=== PATIENT | female | born 1975 | race Caucasian/White ===

== ENCOUNTER 2016-11-08 14:43 | Emergency (ER) | payer OTHER ==
[~2016-11-08] VITALS: Ht 162.6 cm; Wt 118.2 kg
[~2016-11-08 14:43] MED LIST: DROSPIRENONE; NORCO 325 MG-51 TAB; PROTONIX 40MG T40 MG PO; ZYRTEC 10MG10 MG PO; antibiotic
[2016-11-08 14:51] VITALS: BP 169/84; TEMP 98.7
[2016-11-08] MEDS ORDERED: ORTHO TRI-CYCLE1 TA2 PO (14:55)
[2016-11-08 16:45] VITALS: PULSE 89
== END 2016-11-08 16:49 | disposition home or self-care (01) ==
LOC: COL.ER 14:43
DX: M25.522 Pain in left elbow (principal); M25.552 Pain in left hip; S50.312A Abrasion of left elbow, initial encounter; W10.9XXA Fall (on) (from) unspecified stairs and steps, initial encounter; K21.9 Gastro-esophageal reflux disease without esophagitis

== ENCOUNTER → 2017-10-23 | Outpatient (REF) ==
[~2017-10-23] MED LIST changes: +ORTHO TRI-CYCLE1 TA2 PO
[2017-10-23 18:27] LABS: IRON,SERUM 23 ug/dL (35-150)
[2017-10-23 18:37] LABS: TOTAL IRON BINDING CAPACITY 406 ug/dL (265-497)
[2017-10-23 19:04] LABS: FERRITIN 5 ng/mL (6-137)
== END ==
LOC: ZLAB.WCH 18:09
PROVIDERS: Family Medicine
DX: Z01.89 Encounter for other specified special examinations (principal)

== ENCOUNTER → 2018-04-19 | Outpatient (REF) ==
[2018-04-19 18:47] LABS: THYROID STIMULATING HORMONE 1.77 uIU/mL (0.465-4.680)
== END ==
LOC: ZLAB.WCH 18:07
PROVIDERS: Family Medicine
DX: Z01.89 Encounter for other specified special examinations (principal)

== ENCOUNTER → 2018-07-24 | Outpatient (CLI) | payer BC | LOC: ZCOL.LAB 18:01 | DX: K61.1 Rectal abscess (principal) ==

== ENCOUNTER 2018-08-15 11:29 | Day surgery (SDC) | payer BC ==
[~2018-08-15] VITALS: Ht 162.6 cm; Wt 117.8 kg
[2018-08-15] MEDS ORDERED: PROBIOTIC FORMU1 CAP PO (12:01)
[2018-08-15] MEDS ORDERED: BIOCLEANSE PO (12:01)
[2018-08-15] MEDS ORDERED: OMNICEF 300MG300 MG PO (12:02)
[2018-08-15 12:03] VITALS: BP 133/79; PULSE 80; TEMP 97.4
--- NOTE | 2018-08-15 12:30 | NUR ---
Patient assisted up to the bathroom and gait is steady. IV fluids infusing.
--- NOTE | 2018-08-15 13:31 | NUR ---
Dr. Franklin here and talks with the patient. All questions answered.
[2018-08-15 15:55] VITALS: BP 123/68; PULSE 73; TEMP 97.4
--- NOTE | 2018-08-15 15:55 | NUR ---
Patient wheeled back to [facility] from PACU. Alert and oriented. Vital signs obtained, WNL. Patient states pain is 2/10 to buttock. Nausea has resolved. States would like a sprite and crackers. at bedside. Call claudio within reach will continue to monitor.
[2018-08-15] MEDS ORDERED: MOTRIN 600600 MG/TAB PO (16:01)
[2018-08-15 16:10] VITALS: BP 125/73; PULSE 78
--- NOTE | 2018-08-15 16:10 | NUR ---
Vital signs obtained WNL. Tolerating drink and food without any issues. at bedside. Patient states will schedule follow up appointment herself. Will continue to monitor.
[2018-08-15 16:25] VITALS: BP 124/67; PULSE 75
--- NOTE | 2018-08-15 16:50 | NUR ---
Patient requesting to leave at this time. Discharge instructions reviewed. All questions answered. Patient wheeled down to lobby via wheel chair. to drive patient home.
== END 2018-08-15 16:50 | disposition home or self-care (01) ==
LOC: SDCO 11:29
DX: K61.1 Rectal abscess (principal); K21.9 Gastro-esophageal reflux disease without esophagitis; Z87.891 Personal history of nicotine dependence; E66.9 Obesity, unspecified; Z68.42 Body mass index [BMI] 45.0-49.9, adult; Z79.899 Other long term (current) drug therapy; M54.5 Low back pain; G43.909 Migraine, unspecified, not intractable, without status migrainosus
CPT/HCPCS: J0690; J1100; J2405; J2704; J2765; J3010; J7120

== ENCOUNTER → 2018-09-06 | Outpatient (CLI) | payer BC | LOC: ZCOL.LAB 19:13 | DX: K61.0 Anal abscess (principal) ==

== ENCOUNTER → 2018-09-30 | Outpatient (CLI) | payer BC ==
[~2018-09-30] MED LIST changes: +BIOCLEANSE PO; +MOTRIN 600600 MG/TAB PO; +OMNICEF 300MG300 MG PO; +PROBIOTIC FORMU1 CAP PO
== END ==
LOC: ZCOL.LAB 16:15
DX: K61.0 Anal abscess (principal)